=== PATIENT | female | born 1965 | race Caucasian/White ===

== ENCOUNTER 2024-05-17 21:04 | Emergency (ER) | payer BC, MEDICARE ==
[~2024-05-17] VITALS: Ht 170.2 cm; Wt 100.0 kg
[2024-05-17 21:33] LABS: COVID AG,FIA SOURCE NASAL SWAB
[2024-05-17 22:01] LABS: INFLUENZA TYPE A NEGATIVE FOR TYPE A (NEGATIVE); INFLUENZA TYPE B NEGATIVE FOR TYPE B (NEGATIVE); SARS-COV2 (COVID) ANTIGEN,FIA Negative (Negative)
[2024-05-18] MEDS: PredniSONE 20 MG TABLET PO ONE (01:01)
[2024-05-18] MEDS: IPRATROPIUM BROMIDE 0.5 MG/2.5 ML NEB SOLUTION NEB ONE (01:13)
[2024-05-18] MEDS: ALBUTEROL SULFATE 2.5 MG/0.5 ML NEB SOLUTION NEB ONE (01:13)
[2024-05-18 01:20] VITALS: PULSE 75; RESP 18; O2SAT 95
[2024-05-18] MEDS ORDERED: PRED-554 PO (01:41)
[2024-05-18] MEDS: ACETAMINOPHEN 325 MG TABLET PO ONE (01:45)
[2024-05-18 02:13] VITALS: BP 124/66; PULSE 89; RESP 18; TEMP 97.3; O2SAT 95
== END 2024-05-18 02:19 | disposition home or self-care (01) ==
LOC: EMS 21:04
DX: J44.9 Chronic obstructive pulmonary disease, unspecified (principal); I10 Essential (primary) hypertension; F17.210 Nicotine dependence, cigarettes, uncomplicated; F41.9 Anxiety disorder, unspecified; Z90.710 Acquired absence of both cervix and uterus; Z20.822 Contact with and (suspected) exposure to COVID-19
CPT/HCPCS: 99285; 71045; 87426; 87804; 93005; 94060; 94640; J7512; J7613